=== PATIENT | male | born 1975 | race Caucasian/White ===

== ENCOUNTER 2018-07-22 18:15 | Emergency (ER) | payer OTHER, BC ==
[~2018-07-22] VITALS: Ht 185.4 cm; Wt 97.5 kg
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
[2018-07-22 19:32] VITALS: BP 162/104
== END 2018-07-22 19:32 | disposition home or self-care (01) ==
LOC: EDUNIT# 18:15 → ER 18:18
DX: S40.012A Contusion of left shoulder, initial encounter (principal); S60.222A Contusion of left hand, initial encounter; R40.2142 Coma scale, eyes open, spontaneous, at arrival to emergency department; R40.2252 Coma scale, best verbal response, oriented, at arrival to emergency department; R40.2362 Coma scale, best motor response, obeys commands, at arrival to emergency department; V49.40XA Driver injured in collision with unspecified motor vehicles in traffic accident, initial encounter; Y92.410 Unspecified street and highway as the place of occurrence of the external cause
CPT/HCPCS: 73030; 73130